=== PATIENT | female | born 1970 | race Caucasian/White ===

== ENCOUNTER 2016-07-11 20:37 | Emergency (ER) | payer BC ==
[~2016-07-11] VITALS: Ht 165.1 cm; Wt 78.0 kg
[2016-07-11] MEDS ORDERED: LET SOLN TOPICAL 8 ML UDC TP ONE ×2 (21:50→22:00)
[2016-07-11] MEDS ORDERED: SILVER NITRATE APPLICATOR 1 EA BOX ONE ×2 (21:59)
[2016-07-11] MEDS ORDERED: CEPHALEXIN MONOHYDRATE 500 MG CAPSULE PO ONE ×3 (22:00→23:24)
[2016-07-11] MEDS ORDERED: LIDOCAINE 2% 20 ML MDV ONE (22:49)
[2016-07-12 00:02] VITALS: BP 122/68
== END 2016-07-12 00:02 | disposition home or self-care (01) ==
LOC: ER 20:51
DX: S61.304A Unspecified open wound of right ring finger with damage to nail, initial encounter (principal); S61.306A Unspecified open wound of right little finger with damage to nail, initial encounter; Z88.5 Allergy status to narcotic agent; Z88.6 Allergy status to analgesic agent; W45.8XXA Other foreign body or object entering through skin, initial encounter; Y93.89 Activity, other specified; Y92.89 Other specified places as the place of occurrence of the external cause; Y99.8 Other external cause status
CPT/HCPCS: 11730; A4606; J3490; Z7610